=== PATIENT | male | born 1980 ===

== ENCOUNTER → 2023-10-07 | Outpatient (CLI) | payer OTHER ==
[~2023-10-07] VITALS: Ht 182.9 cm; Wt 93.0 kg
[~2023-10-07] MED LIST: PANT-31 PO; PANTOPRAZOLE SODIUM 40 MG DR TABLET PO SCH
[2023-10-07 13:48] VITALS: BP 118/83; PULSE 67; RESP 22; O2SAT 97
== END | disposition home or self-care (01) ==
LOC: SRCNTR 13:31
PROVIDERS: ATTEND Hospitalist
DX: Z00.00 Encounter for general adult medical examination without abnormal findings (principal); G47.33 Obstructive sleep apnea (adult) (pediatric); Z79.899 Other long term (current) drug therapy; Z88.8 Allergy status to other drugs, medicaments and biological substances
CPT/HCPCS: G0463; Z7500